=== PATIENT | female | born 1985 | race African-American/Black ===

== ENCOUNTER 2016-11-19 08:32 | Observation (INO) | payer MEDICAID ==
[~2016-11-19] VITALS: Ht 170.2 cm; Wt 145.1 kg
[~2016-11-19 08:32] MED LIST: [UNRECOGNIZED DRUG - CODE]
[2016-11-19] MEDS ORDERED: ONDANSETRON HCL 4MG/2ML VIAL IM NR (09:30)
[2016-11-19] MEDS ORDERED: DEXT 5%/LACTATED RINGERS 1,000 ML IV SCH (09:40)
[2016-11-19] MEDS ORDERED: ONDANSETRON HCL 4MG/2ML VIAL IV ONE (09:45)
[2016-11-19 10:09] LABS: GLUCOSE URINE NEGATIVE (NEGATIVE); KETONES URINE NEGATIVE (NEGATIVE); LEUKOCYTE ESTERASE URINE NEGATIVE (NEGATIVE); NITRITE URINE NEGATIVE (NEGATIVE); OCCULT BLOOD URINE NEGATIVE (NEGATIVE); PH URINE 6.5 (4.5-8.0); PROTEIN URINE NEGATIVE (NEGATIVE); SPECIFIC GRAVITY URINE 1.023 (1.005-1.030)
[2016-11-19 10:16] LABS: CLARITY URINE CLEAR (CLEAR); COLOR URINE YELLOW (YELLOW)
[2016-11-19] MEDS ORDERED: PREN-88 PO (11:21)
== END 2016-11-19 11:30 | disposition home or self-care (01) ==
LOC: L&D 08:32
PROVIDERS: ADMIT Obstetrics & Gynecology; ATTEND Obstetrics & Gynecology
DX: O21.9 Vomiting of pregnancy, unspecified (principal); O26.892 Other specified pregnancy related conditions, second trimester; R10.30 Lower abdominal pain, unspecified; M54.5 Low back pain; R11.0 Nausea; R19.7 Diarrhea, unspecified; Z3A.27 27 weeks gestation of pregnancy
CPT/HCPCS: 81003; 96361; 96374; 99281; G0378; J2405; 96360; J7121

== ENCOUNTER 2017-03-22 21:07 | Emergency (ER) | payer MEDICAID ==
[~2017-03-22] VITALS: Ht 170.2 cm; Wt 145.5 kg
[~2017-03-22 21:07] MED LIST changes: +PREN-88 PO; -[UNRECOGNIZED DRUG - CODE]
[2017-03-23] MEDS ORDERED: MORPHINE SULFATE 4 MG/ML CPJ (NOT FOR IM USE) IV STA (00:39)
[2017-03-23 01:24] LABS: BASOPHILS % 0.5 % (0.0-2.0); EOSINOPHILS % 1.7 % (0.0-5.0); HEMATOCRIT. 28.9 % (36.0-48.0); HEMOGLOBIN. 9.4 g/dL (12.0-16.0); LYMPHOCYTES % 16.7 % (20.0-50.0); MEAN CORPUSCULAR HEMOGLOBIN 26.3 pg (28.0-32.0); MEAN CORPUSCULAR VOLUME 81.4 fL (81.0-99.0); MEAN PLATELET VOLUME 6.7 fl (7.4-10.4); MONOCYTES % 5.9 % (2.0-8.0); NEUTROPHILS % 75.2 % (40.0-76.0); PLATELET 327 x1000/uL (130-400); RED BLOOD CELL COUNT 3.55 mill/uL (4.2-5.4); RED CELL DISTRIBUTION WIDTH 16.5 % (11.6-14.6)
[2017-03-23 01:31] LABS: CHLORIDE 102 mEq/L (98-107)
[2017-03-23 01:41] LABS: CARBON DIOXIDE 29 mEq/L (21-32)
[2017-03-23 03:48] VITALS: BP 128/77
== END 2017-03-23 03:49 | disposition home or self-care (01) ==
LOC: ER 21:38
DX: O90.89 Other complications of the puerperium, not elsewhere classified (principal); R25.2 Cramp and spasm; R20.0 Anesthesia of skin; R03.0 Elevated blood-pressure reading, without diagnosis of hypertension; Z86.19 Personal history of other infectious and parasitic diseases; J45.909 Unspecified asthma, uncomplicated; Z88.0 Allergy status to penicillin
CPT/HCPCS: 36415; 80053; 85025; 85610; 93970; 96374; 99285; J2270; Z7610